=== PATIENT | female | born 1945 | race Caucasian/White ===

== ENCOUNTER 2020-07-31 15:33 | Outpatient (RCR) | payer MEDICARE, SELFPAY ==
[2020-07-31] MEDS: COVID-19 VACC, MRNA(PFIZER)/PF 30 MCG/0.3 ML SYRINGE IM (07:24)
[2020-08-21] MEDS: COVID-19 VACC, MRNA(PFIZER)/PF 30 MCG/0.3 ML SYRINGE IM (07:07)
== END 2020-10-23 23:59 ==
LOC: IMMUN 15:33
PROVIDERS: PCP Internal Medicine; Referring Provider Family Medicine; Visit Provider Family Medicine
DX: Z23 Encounter for immunization (principal)
CPT/HCPCS: 0001A; 0002A; 91300

== ENCOUNTER 2021-08-23 15:00 | Observation (INO) | payer MEDICARE, SELFPAY ==
[2021-08-23 15:01] VITALS: BP 163/77; PULSE 66; RESP 15; TEMP 36.7; O2SAT 98; BMI 29.2
--- NOTE | 2021-08-23 15:38 | EKG12_ITS ---
Test Reason : DIZZINESS Blood Pressure : / mmHG Vent. Rate : 058 BPM Atrial Rate : 058 BPM P-R Int : 152 ms QRS Dur : 082 ms QT Int : 456 ms P-R-T Axes : 030 -14 030 degrees QTc Int : 447 ms Sinus bradycardia Inferior infarct , age undetermined Abnormal ECG Confirmed by JOHN PAUL SCRUGGS, GERALD ([id number]), editorial manager RILEY KENDALL ([id number]) on 08/28/2021 10:41:55 AM Referred By: LEONA Confirmed By:GERALD COKER MD
--- NOTE | 2021-08-23 15:42 | NURSING ---
NO OLD EKGS
--- NOTE | 2021-08-23 15:42 | ED.VIS.STROK ---
HPI History of Present Illness Chief Complaint: Dizziness Informant: patient Narrative Narrative: Patient is a 75 year old female with history of what sounds like an embolic stroke and proximal atrial fibrillation on Xarelto as well as history of hyperlipidemia, hypertension and vertigo presenting with paresthesias to her right forearm as well as dizziness. Patient states her symptoms started this morning when she woke up around 530. She notes she was not feeling well yesterday but cannot really describe more than that. She been having intermittent tingling in her right forearm all day as well as dizziness that is worse when she stands up or walks. She feels that she is off balance. She denies any vision changes. She does have associated nausea. Denies any ringing in her ears. Denies any chest pain, shortness of breath or difficulty breathing. Denies any GI or symptoms. No she has chronic urinary frequency that is unchanged. Does report that she has been out of her medication including her Xarelto for the past 2 days. She went to her PCP who recommended she come to the ED for further evaluation. Patient states the dizziness feels like her vertigo as well as her prior stroke. [facility] Medical History (Updated 08/23/21 @ 18:[address] Mary Ballard DO) Anemia Chronic pain Former smoker High cholesterol Hypertension Migraines Stroke/cerebrovascular accident TIA (transient ischemic attack) Home Medications atorvastatin 40 mg PO DAILY 08/23/21 [History Last Taken Unknown] calcium carbonate [Job-600] 600 mg PO DAILY 08/23/21 [History Last Taken 08/23/21] cholecalciferol (vitamin D3) [Vitamin D3] 125 mcg PO DAILY 08/23/21 [History Last Taken Unknown] lisinopril 20 mg PO DAILY 08/23/21 [History Last Taken Unknown] rivaroxaban [Xarelto] 20 mg PO DAILY 08/23/21 [History Last Taken Unknown] Allergy/AdvReac Type Severity Reaction Status Date / Time No Known Allergies Allergy Verified 08/23/21 15:17 Surgical History (Updated 08/23/21 @ 18:01 by Angela Guerra) History of cholecystectomy S/P hysterectomy Social History Smoking Status: Never smoker ROS ROS ED Constitutional Constitutional ED: Denies chills or fever(s) Eyes Eyes: Denies blurry vision, change in vision or diplopia ENT ENT ED: Denies rhinorrhea or sore throat Cardiovascular Cardiovascular: Denies chest pain Respiratory/Chest Respiratory/Chest: Denies dyspnea Gastrointestinal Gastrointestinal: Reports nausea; Denies abdominal pain, diarrhea, melena or vomiting Genitourinary Genitourinary ED: Reports urinary frequency; Denies dysuria or hematuria Musculoskeletal Musculoskeletal: Denies arthralgias or myalgias Integumentary Denies rash Neurologic Neurologic: Reports paresthesias; Denies headache(s) or weakness Psychiatric Psychiatric: Denies depression Hematologic/Lymphatic Hematologic/Lymphatic: Reports easy bleeding and easy bruising EXAM Physical Exam Const Vital Signs: 08/23/21 15:01 08/23/21 15:19 08/23/21 15:53 Temperature 98.1 F Temperature Source Temporal Pulse Rate 66 Respiratory Rate 15 Respiratory Effort Normal Respiratory Pattern Normal Blood Pressure 163/77 H Blood Pressure Mean 105 Pulse Ox 98 Oxygen Delivery Method Room Air Room Air 08/23/21 17:16 Temperature Temperature Source Pulse Rate 55 L Respiratory Rate 12 Respiratory Effort Respiratory Pattern Blood Pressure 146/65 H Blood Pressure Mean 92 Pulse Ox 100 Oxygen Delivery Method Positive well nourished and well developed General Appearance ED: well developed HEENT Reports TM's clear and moist mucous membranes atraumatic Tympanic Membrane ED: Yes TM's clear Eyes PERRL and EOMs intact bilaterally Eyes Narrative: no nystagmus on exam with range of motion of the eyes. Patient does have reproducible nystagmus with right Olivet-Hallpike maneuver as well as reproduced symptoms. She has mild reproduction to the left. Neck supple and no JVD Chest Wall inspection of chest normal Resp normal respiratory effort and clear to auscultation bilaterally Cardio no murmurs Rate: regular rate Rhythm: regular rhythm GI normal to inspection, nondistended, normoactive bowel sounds, soft to palpation, non-tender and non-distended Back/Spine no CVA tenderness Extremity normal to inspection General Extremety ED: Negative for deformity, edema or tenderness General Extremity: Negative for deformity or edema Neuro oriented x3 and CN's II-XII intact bilaterally Neuro Narrative: subjective paresthesias to dorsal right forearm, sensation intact. Sensorium / Orientation: alert Speech: speech normal Motor Exam: strength 5/5 throughout Psych mental status grossly normal Skin Lesions: no lesions Rashes: no rashes STROKE Vital Signs/Narrative: Vital Signs Temp Pulse Resp BP Pulse Ox 08/23/21 17:16 55 L 12 146/65 H 100 08/23/21 15:01 98.1 F 66 15 163/77 H 98 NIHSS Initial: 1a Level of Consciousness: 0 1b LOC Questions (Score 2 if aphasic/stupor): 0 1c LOC Commands (Only score 1st attempt): 0 2 Best Gaze (If aphasic, use reflexive mvmts.): 0 3 Visual: 0 4 Facial Palsy: 0 5 Motor Arm Right (UN = amputation/fusion): 0 5 Motor Arm Left: 0 6 Motor Leg Right: 0 6 Motor Leg Left: 0 7 Limb ataxia (Only + if out of proportion): 0 8 Sensory (Aphasia/stupor=0 or 1, coma=2): 1 9 Best Language: 0 10 Dysarthria (mute, coma=2, intubated=UN): 0 11 Extinction and Inattention (only scored if +): 0 Total Score: 1 MDM MDM MDM Narrative Medical decision making narrative: Patient evaluated for 1 day of intermittent paresthesias to her right arm as well as dizziness. She is have a positive Olivet-Hallpike test and is given dose of meclizine. Patient does have a history of stroke and has been off of her Xarelto for the past 2 days. She has normal coordination in the ER however at the office she was unsteady on his feet. I did not test that in the ER. She does not have any truncal ataxia. Head CT obtained which does not show any acute process. Chest x-ray interpreted by myself as well as radiology does not show any acute process. Counseled with patient that I cannot rule out a central stroke with just a CT and only 1 day of symptoms. Given that she also has paresthesias and has been noncompliant with her Xarelto I do recommend admission for MRI to rule out central vertigo. Patient is agreeable this plan of care. She is admitted to the hospital service. Lab Data Attestation: I reviewed the patient's lab results. Labs: Laboratory Results - last 24 hr 08/23/21 08/23/21 08/23/21 15:50 15:50 15:50 WBC 6.2 RBC 4.16 L Hgb 12.3 Hct 36.1 L MCV 86.8 MCH 29.6 MCHC 34.1 RDW Std Deviation 42.3 RDW Coeff of Calvin 13.3 Plt Count 203 MPV 9.7 Immature Gran % (Auto) 0.200 Neut % (Auto) 39.6 L Lymph % (Auto) 46.0 H Ashe % (Auto) 9.7 Eos % (Auto) 3.9 Baso % (Auto) 0.6 Absolute Neuts (auto) 2.4 Absolute Lymphs (auto) 2.84 Nucleated RBC % 0 PT 12.5 INR 1.0 APTT 25.5 Sodium 137 Potassium 4.9 Chloride 107 Carbon Dioxide 27.0 Anion Gap 3 L BUN 22 H Creatinine 0.79 Estim Creat Clear Calc 38.44 Est GFR (MDRD) Af Amer 92 Est GFR (MDRD) Non-Af 76 BUN/Creatinine Ratio 28.0 H Glucose 99 Calcium 9.7 Troponin I High Sens 4 Radiography Diagnostic Testing: Clinical Impression(s) from Imaging Studies Chest X-Ray 08/23/21 16:06 IMPRESSION: Nonacute portable x-ray examination of the chest. Electronically Signed: Markel Clark MD (Brooks) at 16:16 EDT , Brain CT 08/23/21 16:22 IMPRESSION: Chronic involutional changes of the brain. Electronically Signed: Yannick Regalado MD at 16:35 EDT , ADDENDUM: 08/23/21 1644 IMPRESSION: Chronic involutional changes of the brain. N.B. : The above Results were Read Back by Yannick Regalado MD to Dr. Mary Ballard MD, and understanding confirmed on 08/23/2021 16:37:10 (ET). Electronically Signed: Yannick Regalado MD at 16:35 EDT , Rhythm Strip Rhythm Strip: Sinus Rhythm Rate: 58 Ectopy: None EKG Initial EKG: Attestation: I personally reviewed and interpreted this EKG as follows: Comments: Sinus bradycardia Left axis deviation Normal intervals Normal ST segments Stroke Documentation Questions Stroke Team Activated: No Discharge Plan Triage Chief Complaint: Dizziness ED Provider: Mary Ballard Dx/Rx/DC Orders Clinical Impression: Vertigo, Paresthesia Primary Care Provider: Ady López Disposition Disposition: Acute Care Hospital [facility]
[2021-08-23] MEDS: Meclizine HCl 25 MG Tablet PO (16:05)
--- NOTE | 2021-08-23 16:06 | RAD_ITS ---
STUDY: X-RAY CHEST REASON FOR EXAM: Female, 75 years old. Neuro deficit, acute, stroke suspected TECHNIQUE: AP COMPARISON: None. FINDINGS: The lungs are clear and expanded. There is no demonstrated pleural abnormality. Normal size heart. Normal mediastinum and tova. Normal visualized pulmonary arteries. Normal visualized aortic arch and descending thoracic aorta. Normal visualized thoracic spine. Normal visualized ribs, clavicles, and shoulders. There is no demonstrated abnormality of the visualized soft tissue structures of the upper abdomen. RAD/Chest 1 View IMPRESSION: Nonacute portable x-ray examination of the chest. Electronically Signed: Markel Clark MD (Brooks) at 16:16 EDT ,
[2021-08-23 16:12] LABS: Absolute Lymphocyte Count 2.84 X10^3/uL (0.83-4.51); Absolute Neutrophil Count 2.4 X10^3/uL (2.0-7.7); Basophil# 0.04 X10^3/uL; Basophil% 0.6 % (0-1); Eosinophil# 0.24 X10^3/uL; Eosinophils% 3.9 % (0-5); Hematocrit 36.1 % (37-47); Hemoglobin 12.3 g/dL (12.0-15.0); Lymphocyte # 2.84 X10^3/ul (0.83-4.51); Mean Corp Hgb Conc 34.1 g/dL (32-36); Mean Corpuscular Hgb 29.6 pg (27.0-32.0); Mean Corpuscular Volume 86.8 fL (81-99); Mean Platelet Vol. 9.7 fl (6.2-12.0); Monocyte% 9.7 % (0-10); NRBC Flagged by Analyzer 0 % (0-5); Neutrophil # 2.44 X10^3/uL (2.7-7.7); Neutrophil % 39.6 % (47-70); Platelet Count 203 K/mm3 (150-450); Prothrombin Time (Protime)PT. 12.5 SECONDS (11.7-14.9); RBC Distribution Width CV 13.3 % (11.6-14.6); RBC Distribution Width SD 42.3 fl (35.1-43.9); Red Blood Count 4.16 M/mm3 (4.2-5.4); White Blood Count 6.2 K/mm3 (4.4-11.0)
[2021-08-23 16:13] LABS: Partial Thromboplast Time 25.5 Seconds (24.1-36.2)
--- NOTE | 2021-08-23 16:22 | CT_ITS ---
We are attempting to reach an attending provider to discuss findings. An addendum with communication details will be sent when the communication is complete. EXAM: CT HEAD WITHOUT INTRAVENOUS CONTRAST CLINICAL INDICATION: Neuro deficit, acute, stroke suspected TECHNIQUE: Multiple axial images were obtained of the head without intravenous contrast. This CT exam was performed using one or more of the following dose reduction techniques: automated exposure control, adjustment of the mA and/or kV according to patient size, and/or use of iterative reconstruction technique. This report was created using [employer] technology. COMPARISON: None. FINDINGS: BRAIN AND EXTRA-AXIAL SPACES: Chronic involutional changes of the brain. There is/ are old right caudate head lacunar infarct(s). No intra- or extra-axial hemorrhage. No intracranial mass or mass effect. Posterior fossa structures are unremarkable. Ventricles are appropriate for age. No hydrocephalus. Basal cisterns are patent. BONES/JOINTS: Degenerative changes of the mandibular condyles. No discrete lytic or blastic abnormalities. SINUSES: Sinus disease. MASTOID AIR CELLS: Unremarkable. Clear. ORBITS: Visualized globes, extraocular muscles, optic nerves and retrobulbar fat appear unremarkable. CT/STROKE Brain/Head without Cont IMPRESSION: Chronic involutional changes of the brain. Electronically Signed: Yannick Regalado MD at 16:35 EDT ,
[2021-08-23 16:33] LABS: Anion Gap 3 (5-15); BUN 22 mg/dL (7-18); Calcium,Total 9.7 mg/dL (8.5-10.1); Chloride 107 mmol/L (98-107); Creatinine, Serum 0.79 mg/dL (0.55-1.02); EST Glomerular Filtration Rate 76 mL/min (>60); Est Glom Filt Rate - Afr Amer 92 mL/min (>60); Estimated Creatinine Clearance 38.44 ml/min; Glucose 99 mg/dL (74-106); Potassium 4.9 mmol/L (3.5-5.1); Sodium Level 137 mmol/L (136-145); Troponin-I HS 4 pg/mL (3.0-54.0)
[2021-08-23 17:16] VITALS: BP 146/65; PULSE 55; RESP 12; O2SAT 100
--- NOTE | 2021-08-23 17:32 | PCM.HP.STD ---
[facility] - General General Date of Service: 08/23/21 Chief Complaint: Dizziness/vertigo and right arm tingling in the morning. HPI Narrative MURALI PIÑA, is a 75 F came to ED with sudden onset of dizziness and vertigo about 5:30 AM when she woke up. She also had wobbly gait, loss of balance when she walked. She felt the room was spinning. She has intermittent tingling of right forearm. Dizziness is worse when she stands up or moves her head backward. She had associated nausea but denies vomiting, tinnitus or change in vision. Denies blurry vision/quadrantanopsia/hemianopia/no pain. Patient ran out of Xarelto 2 days ago. She is on Xarelto for paroxysmal A. fib. Denies acute chest pain/pressure, shortness of breath, abdominal pain, change in bowel movement or burning micturition or new lower urinary tract symptoms In ED, she had twelve-lead EKG which shows sinus bradycardia at 58 beats per. QTc 446 ms. MN interval and QRS normal. Blood pressure elevated to 163/77, heart rate 66. No hypoxia or tachypnea. PFSH Home Medications atorvastatin 40 mg PO DAILY 08/23/21 [History Last Taken Unknown] cholecalciferol (vitamin D3) [Vitamin D3] 125 mcg PO DAILY 08/23/21 [History Last Taken Unknown] lisinopril 20 mg PO DAILY 08/23/21 [History Last Taken Unknown] rivaroxaban [Xarelto] 20 mg PO DAILY 08/23/21 [History Last Taken Unknown] Allergy/AdvReac Type Severity Reaction Status Date / Time No Known Allergies Allergy Verified 08/23/21 15:17 Social History Smoking Status: Never smoker ROS ROS Narrative Constitutional: Dizziness and vertigo. HEENT: Reports systems reviewed and no addt'l complaints, except as documented Respiratory/Chest: Denies chest pain, shortness of breath at rest or with exertion Gastrointestinal: Denies coffee ground emesis, hematemesis or vomiting Genitourinary: Denies burning urination or new urinary tract symptoms Musculoskeletal: Bilateral lower leg swelling, nonpitting edema. Mild pain in lower legs., Chronic in nature. Reports joint pain and limited range of motion Neurologic: Denies seizure-like activity skin: No ulcer. No rash Endocrinology: Reports systems reviewed and no addt'l complaints, except as documented Hematologic/Lymphatic: Reports systems reviewed and no addt'l complaints, except as documented Rest 14 ROS are negative except as mentioned in HPI Vital Signs Vital Signs Vital Signs: 08/23/21 15:01 08/23/21 15:19 08/23/21 15:53 Temperature 98.1 F Temperature Source Temporal Pulse Rate 66 Respiratory Rate 15 Respiratory Effort Normal Respiratory Pattern Normal Blood Pressure 163/77 H Blood Pressure Mean 105 Pulse Ox 98 Oxygen Delivery Method Room Air Room Air 08/23/21 17:16 Temperature Temperature Source Pulse Rate 55 L Respiratory Rate 12 Respiratory Effort Respiratory Pattern Blood Pressure 146/65 H Blood Pressure Mean 92 Pulse Ox 100 Oxygen Delivery Method Weight Weight: 160 lb Body Mass Index (BMI) 29.2 Physical Exam Narrative General: Alert, Oriented x3, Cooperative HEENT: Atraumatic, PERRLA, EOMI, Normocephalic Oral: No Gingival or Mucosal Lesions/ Ulcerations Neck: Supple, No JVD, Negative Carotid Bruits Lungs: Air entry diminished in bilateral lung bases. No crepitation/rhonchi Cardiovascular: Regular rate, Regular Rhythm, Normal S1, Normal S2, No murmurs Abdomen: Bowel Sounds Present, Soft, Non Tender, Non-Distended : No renal angle tenderness. No suprapubic tenderness. Extremities: Bilateral lower legs nonpitting edema/fat, Capillary Refill Less than 3 Seconds Skin: No rashes, No breakdown Musculoskeletal: Mild tenderness over lower legs/ankles, seems neuropathic pain, chronic in nature. ROM restricted Neurological: Cranial nerves II-XII grossly intact, DTR 2+/4. NIH stroke scale 0. Muscle strength 4/5 at major joints of lower extremities Psych/Mental Status: Normal Affect, Appropriate Results Lab / Micro Data Result Diagrams: 08/23/21 15:50 08/23/21 15:50 Labs: Laboratory Results - last 24 hr 08/23/21 15:50: WBC 6.2, RBC 4.16 L, Hgb 12.3, Hct 36.1 L, MCV 86.8, MCH 29.6, MCHC 34.1, RDW Std Deviation 42.3, RDW Coeff of Calvin 13.3, Plt Count 203, MPV 9.7, Immature Gran % (Auto) 0.200, Neut % (Auto) 39.6 L, Lymph % (Auto) 46.0 H, Griggs % (Auto) 9.7, Eos % (Auto) 3.9, Baso % (Auto) 0.6, Absolute Neuts (auto) 2.4, Absolute Lymphs (auto) 2.84, Nucleated RBC % 0 08/23/21 15:50: PT 12.5, INR 1.0, APTT 25.5 08/23/21 15:50: Sodium 137, Potassium 4.9, Chloride 107, Carbon Dioxide 27.0, Anion Gap 3 L, BUN 22 H, Creatinine 0.79, Estim Creat Clear Calc 38.44, Est GFR (MDRD) Af Amer 92, Est GFR (MDRD) Non-Af 76, BUN/Creatinine Ratio 28.0 H, Glucose 99, Calcium 9.7, Troponin I High Sens 4 Radiology Impression Chest X-Ray 08/23/21 16:06 IMPRESSION: Nonacute portable x-ray examination of the chest. Brain CT 08/23/21 16:22 IMPRESSION: Chronic involutional changes of the brain. Assessment & Plan Assessment/Plan (1) Vertigo: PLAN: 1. Dizziness/vertigo most likely BPPV/right arm tingling: Patient had history of TIA about 10 years ago with she had one-sided numbness tingling and weakness and was started on Xarelto for paroxysmal A. fib. This time her symptoms have almost resolved after meclizine. NIH stroke scale 0. Patient is being admitted in PCU. Monitor with NIH stroke scale. MRI brain without contrast ordered for tomorrow a.m. If MRI is abnormal we will do further evaluation with CT angiogram of head and neck and 2D echo. This was discussed with the patient and daughter and they agree. PT OT and speech therapy evaluation as per protocol. Monitor blood pressure as per stroke guidelines. Glucose is normal, 99. Symptomatic management for vertigo. Bedside Jani-Hallpike maneuver did not reproduce her vertigo or dizziness. 2. Paroxysmal A. fib on Xarelto: Patient ran out of Xarelto 2 days ago. Started on Xarelto first dose now. EKG shows sinus bradycardia. 3. Hypertension: His initial guidelines. Patient on lisinopril 20 mg daily. 4. Dyslipidemia: On atorvastatin 40 mg daily at bedtime. Fasting lipid profile for tomorrow a.m. 5. Bilateral lower leg nonpitting edema and neuropathy pain: Follow with PCP. She denies history of heart failure, coronary artery disease or peripheral arterial disease. She states this is her fat for long time, chronic in nature VTE prophylaxis: On Xarelto. Living will/advanced directive/end of life care: Patient does have living will or advanced directive. Her daughter near the bedside is power of workers compensation defense attorney for health after discussion of benefits/risks procedures involved with full code, DNR CC arrest and DNR CC, the patient and daughter agrees for DNRCC arrest with no intubation Patient doesn't want artificial life support including intubation, tube feed, ventilator and/chest compression, central venous catheter, vasopressor and DC shock if needed Total time spent in [id number] encounter in discussion of advanced directive 16 minutes. Charges/Coding Visit Charges OBSV E&M: 06821 Subsequent observation care L3 Procedures Hospitalists Procedures: 85085 Advncd Care Plan 30 Min
--- NOTE | 2021-08-23 17:52 | NURSING ---
107 OBS MEAGAN VERTIGO, CONCERN FOR STROKE
[2021-08-23 18:17] LABS: Magnesium 2.2 mg/dL (1.6-2.6)
[2021-08-23 18:20] VITALS: BMI 29.2
[2021-08-23 18:23] VITALS: BP 136/61; PULSE 60; RESP 18; TEMP 36.7; O2SAT 97
--- NOTE | 2021-08-23 18:30 | MRI_ITS ---
EXAM: MR HEAD WITHOUT INTRAVENOUS CONTRAST CLINICAL INDICATION: acute stroke TECHNIQUE: Multiplanar and multisequence MR images of the brain were obtained without intravenous contrast. This report was created using [employer] report generation technology. COMPARISON: CT head done earlier. FINDINGS: BRAIN AND EXTRA-AXIAL SPACES: Chronic involutional changes of the brain. There is/ are old right frontal lobe lacunar infarct(s). No intra- or extra-axial hemorrhage. No intracranial mass or mass effect. Posterior fossa structures are unremarkable. Ventricles are appropriate for age. No hydrocephalus. Basal cisterns are patent. SELLA: Unremarkable. Normal sella turcica, pituitary gland, infundibular stalk, optic chiasm and hypothalamus. AUDITORY SYSTEM: Unremarkable. The internal auditory canals are patent. BONES/JOINTS: Unremarkable. No discrete lytic or blastic abnormalities. SINUSES: Unremarkable as visualized. Clear. MASTOID AIR CELLS: Unremarkable as visualized. Clear. ORBITS: Unremarkable as visualized. Both globes, extraocular muscles, optic nerves and retrobulbar fat appear unremarkable. VASCULATURE: Unremarkable as visualized. Normal flow voids in the major intracranial circulation. MRI/Brain without Contrast IMPRESSION: Chronic involutional changes of the brain. Electronically Signed: Yannick Regalado MD at 20:36 EDT ,
[2021-08-23 18:32] VITALS: PULSE 68
[2021-08-23] MEDS: Rivaroxaban 20 MG Tablet PO (18:54)
[2021-08-23] MEDS: Atorvastatin Calcium 40 MG Tablet PO (18:54)
[2021-08-23 20:15] VITALS: BP 135/69; PULSE 57; PULSE 58; PULSE 62; RESP 18; TEMP 36.1; O2SAT 100
[2021-08-23] MEDS: 0.9% Normal Saline 1,000 ML 100 ML IV (20:33)
[2021-08-24 02:57] VITALS: PULSE 58
[2021-08-24 04:10] VITALS: BP 139/73; PULSE 68; RESP 16; TEMP 36.1; O2SAT 99
[2021-08-24 04:12] VITALS: BMI 29.2
[2021-08-24 08:00] VITALS: PULSE 60
--- NOTE | 2021-08-24 08:18 | PCM.DC ---
Discharge Instructions Diet Discharge Diet: No restrictions Activity Discharge Activity: Return to Normal Activity and May Not Drive Dressing / Incision Call your doctor if you observe: Fever of 101 or Higher, Coldness, Increased Pain, Numbness or Tingling, Change in Color, Inability to urinate, Inability to have a bowel movement, Using more than 1 pad per hour, Shortness of breath, Dizziness, Fainting spells, Swelling in the ankles, Chest pain, Prolonged hiccupping, Increased palpitations (irregular heartbeat), Calf discomfort and Uncontrolled pain Follow Up Care Test Results: Test results from this visit will be discussed in further detail at your follow-up appointment, if applicable. Discharge Plan Admission Admit Date/Time: 08/23/21 17:25 Primary Reason for Your Visit: Vertigo/BPPV Attending Provider: Franco Hampton Primary Care Provider: Ady López Discharge Orders/Prescriptions Prescriptions: New meclizine 12.5 mg tablet 12.5 mg PO .QID PRN (Reason: dizziness or vertigo) Qty: 30 RF: 0 Continued atorvastatin 40 mg tablet 40 mg PO DAILY RF: 0 cholecalciferol (vitamin D3) [Vitamin D3] 125 mcg (5,000 unit) Tablet 125 mcg PO DAILY RF: 0 calcium carbonate 600 mg calcium (1,500 mg) Tablet 600 mg PO DAILY RF: 0 lisinopril 20 mg tablet 20 mg PO DAILY Qty: 0 RF: 0 Xarelto 20 mg tablet 20 mg PO DAILY Qty: 30 RF: 1 Referrals / Follow Up: Ady López MD [Primary Care Provider] - Within 2 Weeks Disposition Disposition (needs filled in before D/C Order can be placed): Home, Self Care
[2021-08-24 09:10] LABS: Phosphorus 3.1 mg/dL (2.5-4.9)
[2021-08-24 09:13] LABS: Cholesterol 179 mg/dL (200); High Density Lipoprotein 62 mg/dL; Thyroid Stim Hormone (TSH) 1.87 uIU/mL (0.358-3.74); Triglycerides 150 mg/dL; Very Low Density Lipoprotein 30 mg/dL (5-40)
[2021-08-24] MEDS: Rivaroxaban 20 MG Tablet PO (10:02)
[2021-08-24] MEDS: Atorvastatin Calcium 40 MG Tablet PO (10:03)
[2021-08-24] MEDS: Lisinopril 20 MG Tablet PO (10:03)
[2021-08-24 10:10] VITALS: BP 134/67; PULSE 59; RESP 16; TEMP 35.9; O2SAT 99
--- NOTE | 2021-08-24 10:25 | DS.PCM_ITS ---
Providers Date of Admission: 08/23/21 Date of Discharge: 08/24/21 Primary Care Physician: Dr. Ady López MD Reason For Visit: DIZZINESS/VERTIGO Diagnosis Discharge Diagnosis (1) Vertigo: Status: Acute Code(s): R42 - Dizziness and giddiness Medications at Discharge Home Medications atorvastatin 40 mg PO DAILY 08/23/21 calcium carbonate 600 mg PO DAILY 08/23/21 cholecalciferol (vitamin D3) [Vitamin D3] 125 mcg PO DAILY 08/23/21 Xarelto 20 mg PO DAILY #30 tab 08/24/21 lisinopril 20 mg PO DAILY #0 tab 08/24/21 meclizine 12.5 mg PO .QID PRN #30 tab 08/24/21 Hospital Course Summary of Care Provided Hospital Course: This is a 75-year-old female admitted with sudden onset of dizziness and vertigo, loss of coordination/balance and wobbly gait. Overall clinical assessment was BPV 1. Dizziness/vertigo most likely BPPV/right arm tingling: Patient had history of TIA about 10 years ago with she had one-sided numbness tingling and weakness and was started on Xarelto for paroxysmal A. fib. This time her symptoms have almost resolved after meclizine. NIH stroke scale 0. Patient is being admitted in PCU. MRI brain was done did not show any acute infarct or mass or bleeding. Patient symptoms have resolved. I performed bedside Thedford-Hallpike maneuver did not reproduce her symptoms or vertigo or nystagmus. Fasting profile within normal limit. Patient is discharged home in refill given for Xarelto. Prescription also given for meclizine for symptomatic dizziness or vertigo 2. Paroxysmal A. fib on Xarelto: Patient ran out of Xarelto 2 days ago. Started on Xarelto first dose now. EKG shows sinus bradycardia. 3. Hypertension: His initial guidelines. Patient on lisinopril 20 mg daily. 4. Dyslipidemia: On atorvastatin 40 mg daily at bedtime. 5. Bilateral lower leg nonpitting edema and neuropathy pain: Follow with PCP. She denies history of heart failure, coronary artery disease or peripheral arterial disease. She states this is her fat for long time, chronic in nature VTE prophylaxis: On Xarelto. Living will/advanced directive/end of life care: Patient does have living will or advanced directive. Her daughter near the bedside is power of luggage repairer for health after discussion of benefits/risks procedures involved with full code, DNR CC arrest and DNR CC, the patient and daughter agrees for DNRCC arrest with no intubation Patient doesn't want artificial life support including intubation, tube feed, ventilator and/chest compression, central venous catheter, vasopressor and DC shock if needed Total time spent in [id number] encounter in discussion of advanced directive 16 minutes. Physical Exam Narrative General: Alert, Oriented x3, Cooperative HEENT: Atraumatic, PERRLA, EOMI, Normocephalic Oral: No Gingival or Mucosal Lesions/ Ulcerations Neck: Supple, No JVD, Negative Carotid Bruits Lungs: Air entry diminished in bilateral lung bases. No crepitation/rhonchi Cardiovascular: Regular rate, Regular Rhythm, Normal S1, Normal S2, No murmurs Abdomen: Bowel Sounds Present, Soft, Non Tender, Non-Distended : No renal angle tenderness. No suprapubic tenderness. Extremities: Bilateral lower legs nonpitting edema/fat, Capillary Refill Less than 3 Seconds Skin: No rashes, No breakdown Musculoskeletal: Mild tenderness over lower legs/ankles, seems neuropathic pain, chronic in nature. ROM restricted Neurological: Cranial nerves II-XII grossly intact, DTR 2+/4. NIH stroke scale 0. Muscle strength 4/5 at major joints of lower extremities Psych/Mental Status: Normal Affect, Appropriate Weight / BMI Weight Weight: 162 lb 7.691 oz Body Mass Index (BMI) 29.2 ABG / Lab / Microbiology Data Result Diagrams: 08/23/21 15:50 08/23/21 15:50 Laboratory: Laboratory Results - last 24 hr 08/23/21 15:50: WBC 6.2, RBC 4.16 L, Hgb 12.3, Hct 36.1 L, MCV 86.8, MCH 29.6, MCHC 34.1, RDW Std Deviation 42.3, RDW Coeff of Calvin 13.3, Plt Count 203, MPV 9.7, Immature Gran % (Auto) 0.200, Neut % (Auto) 39.6 L, Lymph % (Auto) 46.0 H, [place] % (Auto) 9.7, Eos % (Auto) 3.9, Baso % (Auto) 0.6, Absolute Neuts (auto) 2.4, Absolute Lymphs (auto) 2.84, Nucleated RBC % 0 08/23/21 15:50: PT 12.5, INR 1.0, APTT 25.5 08/23/21 15:50: Sodium 137, Potassium 4.9, Chloride 107, Carbon Dioxide 27.0, Anion Gap 3 L, BUN 22 H, Creatinine 0.79, Estim Creat Clear Calc 38.44, Est GFR (MDRD) Af Amer 92, Est GFR (MDRD) Non-Af 76, BUN/Creatinine Ratio 28.0 H, Glucose 99, Calcium 9.7, Troponin I High Sens 4 08/23/21 15:50: Magnesium 2.2 Radiography Diagnostic Testing: Radiology Impression Chest X-Ray 08/23/21 16:06 IMPRESSION: Nonacute portable x-ray examination of the chest. Electronically Signed: Markel Clark MD ([place]) at 16:16 EDT , Brain CT 08/23/21 16:22 IMPRESSION: Chronic involutional changes of the brain. Electronically Signed: Yannick Regalado MD at 16:35 EDT , ADDENDUM: 08/23/21 1644 IMPRESSION: Chronic involutional changes of the brain. N.B. : The above Results were Read Back by Yannick Regalado MD to Dr. Mary Ballard MD, and understanding confirmed on 08/23/2021 16:37:10 (ET). Electronically Signed: Yannick Regalado MD at 16:35 EDT , Brain MRI 08/23/21 18:30 IMPRESSION: Chronic involutional changes of the brain. Electronically Signed: Yannick Regalado MD at 20:36 EDT Reading Location ID and State: [facility] / [place] , Service support , Meaningful Use Info Meaningful Use Diagnoses (Choose all that apply): None applicable Discharge Plan Admission Admit Date/Time: 08/23/21 17:25 Primary Reason for Your Visit: Vertigo/BPPV Attending Provider: Franco Hampton Primary Care Provider: Ady López Discharge Orders/Prescriptions Prescriptions: New meclizine 12.5 mg tablet 12.5 mg PO .QID PRN (Reason: dizziness or vertigo) Qty: 30 RF: 0 Continued atorvastatin 40 mg tablet 40 mg PO DAILY RF: 0 cholecalciferol (vitamin D3) [Vitamin D3] 125 mcg (5,000 unit) Tablet 125 mcg PO DAILY RF: 0 calcium carbonate 600 mg calcium (1,500 mg) Tablet 600 mg PO DAILY RF: 0 lisinopril 20 mg tablet 20 mg PO DAILY Qty: 0 RF: 0 Xarelto 20 mg tablet 20 mg PO DAILY Qty: 30 RF: 1 Referrals / Follow Up: Ady López MD [Primary Care Provider] - Within 2 Weeks Disposition Disposition (needs filled in before D/C Order can be placed): Home, Self Care Charges/Coding Visit Charges Inpatient E&M: 27146 Disch Hosp
--- NOTE | 2021-08-24 10:25 | CASEMGMT ---
This RN CM to room and pt states no concerns with going home at discharge. Pt states no need for any further therapy. Pt does request a work release and Meredith SANCHEZ aware. Rosario SANCHEZ CM
== END 2021-08-24 10:20 | disposition home or self-care (01) ==
LOC: ED 15:56 → PCU 17:47
PROVIDERS: Admitting Provider Internal Medicine; Emergency Provider Emergency Medicine; PCP Family Medicine; Visit Provider Internal Medicine
DX: R42 Dizziness and giddiness (principal); I48.0 Paroxysmal atrial fibrillation; I10 Essential (primary) hypertension; R00.1 Bradycardia, unspecified; R11.0 Nausea; Z86.73 Personal history of transient ischemic attack (TIA), and cerebral infarction without residual deficits; E78.5 Hyperlipidemia, unspecified; R29.701 NIHSS score 1; G62.9 Polyneuropathy, unspecified; R60.0 Localized edema; Z79.01 Long term (current) use of anticoagulants; Z79.899 Other long term (current) drug therapy; Z87.891 Personal history of nicotine dependence; Z91.19 Patient's noncompliance with other medical treatment and regimen; R20.2 Paresthesia of skin
CPT/HCPCS: 70450; 70551; 71045; 80048; 80061; 83735; 84100; 84443; 84484; 85025; 85610; 85730; 93005; 96360; 96361; 99218; 99283; J7030; A4216; G0378